=== PATIENT | male | born 1950 | race African-American/Black ===

== ENCOUNTER 2020-12-30 14:09 | Emergency (ER) | payer OTHER ==
[~2020-12-30] VITALS: Ht 180.3 cm; Wt 86.4 kg
[~2020-12-30 14:09] MED LIST: AMLO-186 PO; ASPI-630 PO; ATOR20TA58 PO; ATOR40TA PO; CHOL10003 PO; LISI1TAB37 PO
--- NOTE | 2020-12-30 14:42 | PHYS DOC ---
Past Medical History Past Medical History: High Cholesterol, Hypertension, TIA Additional Past Medical Histor: High cholesterol, prostate Past Surgical History: No Surgical History Additional Past Surgical Histo: unknown Smoking Status: Former Smoker Alcohol Use: None Drug Use: None General Adult EDM: Chief Complaint: CHEST PAIN HPI: HPI: Patient is a 70-year-old male who presents to the emergency department with complaints of a sudden onset of chest pain that started approximately 2 hours prior to arrival. Patient describes his pain as [id number] sticking him in the chest. Patient reports his pain increases when he deep breathes or deep exhales. Patient denies radiation of this pain. Denies diaphoretic episode. Patient feels he is short of breath because he cannot take a full breath and related to his chest pain. Patient denies nasal or chest congestion. Denies recent fever or chills. Did not take pain medication prior to calling EMS for transfer to the emergency department. States he had a nonproductive "bad cough" all day yesterday, also reports having nasal stuffiness 2 days ago. Patient reports the symptoms have since resolved and is no longer having a cough or nasal stuffiness. Patient denies nausea, vomiting, diarrhea, abdominal pains or constipation. Denies seeing blood in the stool or in his urine. Denies chest palpitations, syncope or near syncopal episodes, denies dizziness, denies visual disturbances. Denies headaches. Patient reports a past medical history of high blood pressure, hypercholesterol, atrial fibrillation, breathing problems in which he uses a inhaler for but denies asthma, BPH, glaucoma. Patient currently reports his chest pain a 10 out of 10. Reports it eases up some when he shallow breathes. Patient denies recent injury or traumatic injury to his chest. Patient denies other physical complaints or physical concerns. Review of Systems: Review of Systems: 14 body systems of review of systems have been reviewed. See HPI for pertinent positives and negative responses, otherwise all other systems are negative, nonpertinent or noncontributory. Constitutional: Negative except as outlined in HPI above. Skin: Negative except as outlined in HPI above. Eyes: Negative except as outlined in HPI above. HENT: Negative except as outlined in HPI above. Respiratory: Negative except as outlined in HPI above. Cardiovascular: Negative except as outlined in HPI above. GI: Negative except as outlined in HPI above. : Negative except as outlined in HPI above. Musculoskeletal: Negative except as outlined in HPI above. Integument: Negative except as outlined in HPI above. Neurologic: Negative except as outlined in HPI above. Endocrine: Negative except as outlined in HPI above. Lymphatic: Negative except as outlined in HPI above. Psychiatric: Negative except as outlined in HPI above. Heart Score: C/O Chest Pain: Yes HEART Score for Chest Pain: HEART Score for Chest Pain Response (Comments) Value History Slighlty/Non-Suspicious 0 Age > 65 2 Risk Factors >3 Risk Factors or Hx CAD 2 Troponin < Normal Limit 0 Total 4 Risk Factors: Risk Factors: DM, Current or recent (<one month) smoker, HTN, HLP, family history of CAD, obesity. Risk Scores: Score 0 - 3: 2.5% MACE over next 6 weeks - Discharge Home Score 4 - 6: 20.3% MACE over next 6 weeks - Admit for Clinical Observation Score 7 - 10: 72.7% MACE over next 6 weeks - Early Invasive Strategies Current Medications: Patient reports all medications from the [facility], called and reviewed medications with the [facility] pharmacy, medications as follows: Tylenol 500 mg, albuterol MDI, alprostidil 20 mEq injection, Eliquis 5 mg, atorvastatin 20 mg, brimonidine 0.2% ophthalmic, chlorthalidone 25 mg, vitamin D3, vitamin B12, diclofenac 0.01% ophthalmic, diclofenac 1% topical gel, docusate sodium 100 mg capsule, Flonase nasal spray, latanoprost ophthalmic, mirtazapine 30 mg nitroglycerin sublingual tablets, nortriptyline 10 mg, potassium chloride SA, prednisone acetate ophthalmic, pregabalin 50 mg, cetirizine 50 mg, tamsulosin 0.4 mg. Current Medications Medications (Trade) Dose Ordered Sig/Effie Start Time Stop Time Status Last Admin Dose Admin Acetaminophen (Tylenol) 1,000 mg 1X ONCE 12/30/20 15:00 12/30/20 15:01 Allergies: Allergies: Allergies Coded Allergies Type Severity Reaction Last Updated Verified No Known Drug Allergies 04/26/13 No Physical Exam: PE: Constitutional: Well developed, well nourished, no acute distress, non-toxic appearance. 70-year-old male in no apparent distress. HENT: Normocephalic, atraumatic. Bilateral TMs normal, oropharynx moist, pink, no deep tissue infectious process appreciated. Patient speaking in normal voice tones. Eyes: Conjunctiva normal, no discharge. Neck: Normal range of motion, no stridor. No neck pain, no nuchal rigidity. No meningismus signs. Cardiovascular: No cyanosis appreciated, distal cap refill less than 2 seconds. Heart sounds S1-S2, regular rate and rhythm Lungs & Thorax: Patient is in no respiratory distress, no audible adventitious lung sounds appreciated. Lung sounds clear to auscultate all lung gatica howeve r did not deep breathe related to chest pain. Pain to palpation along the anterior thorax and rib cage area, no crepitus appreciated, no bruising appreciated, no subcu air appreciated. Abdomen: Nontender, no abnormalities noted. Skin: Warm, dry, no erythema, no rash. Back: No tenderness, no deformities. Extremities: No tenderness, no cyanosis, no clubbing, ROM intact, no edema. Neurologic: Alert and oriented X 3, normal motor function, normal sensory function, no focal deficits noted. Psychologic: Affect normal, judgement normal, mood normal. Current Patient Data: Vital Signs: Vital Signs Date Time Temp Pulse Resp B/P (MAP) Pulse Ox O2 Delivery O2 Flow Rate FiO2 12/30/20 14:25 98.1 91 18 119/80 (93) 98 Room Air 98.1 EKG: EKG: EKG performed at 1418 by ED nursing staff shows a normal sinus rhythm with left axis deviation, heart rate 88 bpm, no other ectopy appreciated, DE interval 0.176, QTc interval 0.432, no acute STEMI, no ACS, no acute ischemia appreciated, EKG interpreted by ED attending physician Dr. Kaiser. Repeat serial EKG performed at 1457 no significant change from previous EKG, sinus rhythm with left axis deviation, heart rate 85 bpm, no other ectopy appreciated, DE interval 0.174, QTc interval 0.429, no acute STEMI, no ACS, no acute ischemia appreciated, EKG interpreted by ED attending physician Dr. Kaiser. Radiology/Procedures: Radiology/Procedures: PROCEDURE: PORTABLE CHEST 1V Single view of the chest. 12/30/2020 2:30 PM Indication: Reason: Chest pain Comparison: Chest radiograph December 26, 2015 Findings: No pneumothorax or pleural effusion is seen. No acute infiltrates are identified. Heart size is normal. No acute osseous changes are seen. IMPRESSION: No evidence of acute cardiopulmonary abnormality Electronically signed by: Rigo Steel MD (12/30/2020 2:44 PM) [id number] Course & Med Decision Making: Course & Med Decision Making Pertinent Labs and Imaging studies reviewed. (See chart for details) 70-year-old male, vital signs reviewed, resents emerged from concerning sudden onset of chest pain. Physical examination consistent with atypical chest pain presentation, costochondritis versus other cardiorespiratory process. Patient does report for negative cardiac catheterizations in the past, the most recent being 2 years ago at the [facility] in [facility]. Will order chest x-ray, serial EKG x2, serial troponin I, cardiac isoenzymes, BNP, lipase, cardiac monitoring, O2 sat monitoring, NIBP monitoring, will give 1 g Tylenol for pain of 10 out of 10. Will reevaluate after period of time. Patient's chest x-ray unremarkable, serial EKGs unremarkable, initial troponin I unremarkable, cardiac isoenzymes unremarkable, BNP lipase within normal limits. CBC unremarkable, CMP shows hypokalemia at 3.1, will give 40 mEq p.o. The patient's pain is currently a 0 out of 10, patient reports relief of all symptoms at this time, however patient's HEART score equals 4. Will consult with cardiology. Discussed patient case and ED work-up with cardiology nurse practitioner specialist Kathy who recommended repeat high sensitive troponin eyes at 6 hours from onset of chest pain, if repeat troponin negative and continues to be symptom-free feel safe sending the patient home as patient has a cardiology appointment at the [place] tomorrow at 2:30 PM, otherwise if troponin elevated or other change in symptomology will reconsult for admission to hospital. Discussed patient case and ED work-up with ED attending physician Dr. Kaiser, discussed recommendations from cardiology service, Dr. Kaiser examined patient at bedside, is amendable with cardiology's planning however recommended a third troponin I test at 8 hours from onset of chest pain to ensure no elevation in troponin. Discussed this with patient, patient is amenable to ED monitoring and planning with repeat troponins. Patient remains hemodynamically stable and in no distress, is nontoxic in appearance, is not hypoxic. Has no chest pain at this time. Serial high-sensitivity troponin I negative for acute or significant change performed at arrival to ER, 3 hours after onset of chest pain and 6 hours after onset of chest pain. Patient remains hemodynamically stable, in no apparent distress, continues to deny chest pain or discomfort. Discussed with patient strict follow-up with his primary care map maker tomorrow and keep appointment at 230, strict return ER precautions and concerns for returning chest pain increase shortness of breath syncopal episodes chest palpitations or other concerns. Patient gave verbal understanding of and is amenable to ED discharge planning. Diagnosis chest pain of unknown etiology. Dragon Disclaimer: Ramon Disclaimer: This electronic medical record was generated, in whole or in part, using a voice recognition dictation system. Departure Departure Impression: Primary Impression: Chest pain of unknown etiology Disposition: HOME / SELF CARE / HOMELESS Condition: GOOD Referrals: UNKNOWN PCP NAME (PCP) Patient Instructions: Chest Pain (Nonspecific) Additional Instructions: You were seen today in the emergency department for a sudden onset of chest pain. An extensive cardiac work-up was done today. Your EKG did not show any concerning findings, a repeat EKG at a later time did not show any concerning findings. Your checks for x-ray did not show any lung infection or cardiac ab normalities or bone abnormalities. Your lab work showed a low potassium of 3.1 in which you were treated with an oral potassium supplement in the ER today. Please let your primary care doctor know that you had a low potassium today, consider eating potassium rich foods. Cardiac enzymes were done at arrival to the emergency department, then 3 hours after onset of pain and again 6 hours after onset of pain. There was no significant change to indicate that your chest pain was cardiac related. You had indicated you have an appointment to see your map maker tomorrow at 2:30 PM. I have spoke to the sales merchandising specialist nurse practitioner Kathy who feels it is safe for you to be discharged home related to you not having any further chest pains and your ca rdiac enzymes did not show any concerning findings. As we discussed please return to the emergency department immediately for returning chest pain, shortness of breath, chest palpitations, dizzy spells, passing out spells, or other concerns. See your primary care doctor soon to discuss your chest pain episode at the emergency department today. Thank you for visiting our Emergency Department. It was a pleasure taking care of you today in the emergency department and we appreciate you trusting us with your care. If any additional problems come up don't hesitate to return to visit us. Please follow up with your primary care provider so they can plan additional care if needed and know about the problem that you had. If symptoms worsen come back to the Emergency Department. Any concerning symptoms that start such as chest pain, shortness of air, weakness or numbness on one side of the body, running high fevers or any other concerning symptoms return to the ER. EMERGENCY DEPARTMENT GENERAL DISCHARGE INSTRUCTIONS Thank you for coming to [facility] Emergency Department (ED) today and trusting us with you care. We trust that you had a positive experience in our Emergency Department. If you wish to speak to the department management, you may call the Director at [phone]. YOUR FOLLOW UP INSTRUCTIONS ARE FOLLOWS: 1. Do you have a private Doctor? If you do not have a private doctor, please ask for a resource list of physicians or clinics that may be able to assist you with follow up care. 2. The Emergency Physicain has interpreted your x-rays. The X-Ray specialist will also review them. If there is a change in the findings, you will be notified in 48 hours when at all possible. 3. A lab test or culture has been done, your results will be reviewed and you will be notified if you need a change in treatment. ADDITIONAL INSTRUCTIONS AND INFORMATION: 1. Your care today has been supervised by a physician who is specially trained in emergency care. Many problems require more than one evaluation for a complete diagnosis and treatment. We recommend that you schedule your follow up appointment as recommended to ensure complete treatment of you illness or injury. If you are unable to obtain follow up care and continue to have a problem, or if your condition worsens, we recommend that you return to the ED. 2. We are not able to safely determine your condition over the phone nor are we able to give sound medical advice over the phone. For these safety reasons, if you call for medical advice we will ask you to come to the ED for further evaluation. 3. If you have any questions regarding these discharge instructions please call the ED at [phone]. SAFETY INFORMATION: In the interest of safety, wellness, and injury prevention; we encourage you to wear your sealbelt, if you smoke; quite smoking, and we encourage family to use a protective helmet for bicycling and other sporting events that present an increased risk for head injury. IF YOUR SYMPTOMS WORSEN OR NEW SYMPTOMS DEVELOP, OR YOU HAVE CONCERNS ABOUT YOUR CONDITION; OR IF YOUR CONDITION WORSENS WHILE YOU ARE WAITING FOR YOUR FOLLOW UP A PPOINTMENT; EITHER CONTACT YOUR PRIMARY CARE DOCTOR, THE PHYSICIAN WHOSE NAME AND NUMBER YOU WERE GIVEN, OR RETURN TO THE ED IMMEDIATELY. MEGHA STONER APRN Dec 30, 2020 14:42
--- NOTE | 2020-12-30 14:46 | RAD ---
Single view of the chest. 12/30/2020 2:30 PM Indication: Reason: Chest pain Comparison: Chest radiograph December 26, 2015 Findings: No pneumothorax or pleural effusion is seen. No acute infiltrates are identified. Heart siz e is normal. No acute osseous changes are seen. IMPRESSION: No evidence of acute cardiopulmonary abnormality Electronically signed by: Rigo Steel MD (12/30/2020 2:44 PM) [id number]
[2020-12-30 14:49] LABS: BASO % 1 % (0-3); EOS # 0.2 x10^3/uL (0.0-0.7); EOS % 4 % (0-3); HEMATOCRIT 43.3 % (39.0-53.0); HEMOGLOBIN 14.7 g/dL (13.0-17.5); LYMPH # 1.6 x10^3/uL (1.0-4.8); LYMPH % 29 % (24-48); MEAN CORPUSCULAR HEMOGLOBIN 33 pg (25-35); MEAN CORPUSCULAR HGB CONC 34 g/dL (31-37); MEAN CORPUSCULAR VOLUME 97 fL (79-100); MONO # 0.6 x10^3/uL (0.0-1.1); MONO % 11 % (0-9); NEUT % 56 % (31-73); PLATELET COUNT 177 x10^3/uL (140-400); RED BLOOD COUNT 4.44 x10^6/uL (4.30-5.70); RED CELL DISTRIBUTION WIDTH 13.2 % (11.5-14.5); WHITE BLOOD COUNT 5.4 x10^3/uL (4.0-11.0)
[2020-12-30] MEDS ORDERED: ACETAMINOPHEN 500 MG TABLET PO ONE (15:00)
[2020-12-30 15:18] LABS: CALCIUM 9.5 mg/dL (8.5-10.1); CREATININE 1.3 mg/dL (0.7-1.3); POTASSIUM 3.1 mmol/L (3.5-5.1)
[2020-12-30 15:27] LABS: ALBUMIN 3.8 g/dL (3.4-5.0); TOTAL BILIRUBIN 0.9 mg/dL (0.2-1.0); TOTAL PROTEIN 7.8 g/dL (6.4-8.2)
[2020-12-30] MEDS ORDERED: POTASSIUM CHLORIDE 20 MEQ TABLET.ER. PO ONE (15:30)
--- NOTE | 2020-12-30 16:22 | EKG ---
[facility] [address] [place] [address] Test Date: 2020-12-30 Test Time: 14:16:40 Pat Name: EMELY ARGUETA Department: Room: Gender: M Slubber Hand: : 1950 Requested By: MEGHA STONER Order Number: [id number] Reading MD: Measurements Intervals [place] Rate: 88 P: 26 FL: 176 QRS: -41 QRSD: 76 T: 48 QT: 354 QTc: 432 Interpretive Statements SINUS RHYTHM ABNORMAL LEFT AXIS DEVIATION R-S TRANSITION ZONE IN V LEADS DISPLACED TO THE RIGHT QRS(T) CONTOUR ABNORMALITY CONSIDER ANTEROLATERAL MYOCARDIAL DAMAGE ABNORMAL ECG RI6.01 No previous ECG available for comparison
--- NOTE | 2020-12-30 16:23 | EKG ---
[facility] [address] [place] [address] Test Date: 2020-12-30 Test Time: 14:57:01 Pat Name: EMELY ARGUETA Department: Room: Gender: M Cloth Painter: : 1950 Requested By: MEGHA STONER Order Number: [id number] Reading MD: Measurements Intervals [place] Rate: 85 P: 26 IA: 174 QRS: -31 QRSD: 76 T: 27 QT: 360 QTc: 429 Interpretive Statements SINUS RHYTHM ABNORMAL LEFT AXIS DEVIATION R-S TRANSITION ZONE IN V LEADS DISPLACED TO THE RIGHT ABNORMAL ECG RI6.01 Compared to ECG 12/30/2020 14:16:40 No significant changes
[2020-12-30 21:01] VITALS: BP 112/76
== END 2020-12-30 21:20 | disposition home or self-care (01) ==
LOC: ER 14:09
DX: R07.89 Other chest pain (principal); I10 Essential (primary) hypertension; E78.00 Pure hypercholesterolemia, unspecified; Z87.891 Personal history of nicotine dependence; Z86.73 Personal history of transient ischemic attack (TIA), and cerebral infarction without residual deficits
CPT/HCPCS: 36415; 71045; 80053; 82553; 83690; 83735; 83880; 84484; 85025; 85379; 93005; 99285-25